=== PATIENT | female | born 1955 | race Caucasian/White ===

== ENCOUNTER 2019-04-18 12:00 | Emergency (ER) | payer OTHER ==
[~2019-04-18] VITALS: Ht 154.9 cm; Wt 87.5 kg
--- NOTE | ~2019-04-18 | EKG ---
[place], [place] ELECTROCARDIOGRAM REPORT NAME: CHRISTINE VILLANUEVA UNIT #: [id number] ROOM: DOCTOR: EPIPHINGRID DRAFT REPORT BIRTHDATE: [birth year] [facility] Test Date: 2019-04-18 Test Time: 12:40:52 Pat Name: CHRISTINE VILLANUEVA Department: Room: Gender: F Industrial Relations Officer: : 1955 Requested By: MARITZA LEMUS Order Number: [id number] Reading MD: Sabas Prieto MD Measurements Intervals [place] Rate: 82 P: 68 NH: 257 QRS: -40 QRSD: 154 T: 108 QT: 424 QTc: 496 Interpretive Statements Sinus rhythm First degree block Left bundle branch block Baseline wander in lead(s) V2 Electronically Signed On 04-20-2019 15:51:48 PDT by Sabas Prieto MD CM:EKGRPT:ELECTROCARDIOGRAM REPORT [id number] MARITZA CAT DRAFT REPORT MARITZA LEMUS DO
[2019-04-18 12:02] VITALS: BP 115/62
[2019-04-18 12:54] LABS: BASO % 0.2 % (0.0-1.0); HEMATOCRIT 42.8 % (37.0-47.0); HEMOGLOBIN 11.8 g/dl (12.0-16.0); LYMPH % 15.9 % (27.0-41.0); MEAN CELL VOLUME 85.8 fl (81.0-99.0); MEAN CORPUSCULAR HGB 23.6 pg (27.0-31.0); MEAN CORPUSCULAR HGB CONC 27.6 g/dl (33.0-37.0); MONO # 0.3 10*3/uL (0.1-1.0); MONO % 5.1 % (3.0-9.0); NEUT # 5.1 10*3/uL (2.3-7.9); NEUT % 78.2 % (47.0-73.0); NUCLEATED RED BLOOD CELL 0.5 % (0.0-0.0); PLATELET COUNT AUTOMATED 243 10*3/uL (130-400); RED BLOOD COUNT 4.99 10*6/uL (4.10-5.10); RED CELL DISTRI WIDTH 22.1 % (0-14.5); WHITE BLOOD COUNT 6.5 10*3/uL (4.8-10.8)
[2019-04-18 13:07] LABS: ACT PARTIAL THROMBO TIME 31.6 SECONDS (20.0-32.1); INTERNATIONAL NORM RATIO 1.3 (2.0-3.5)
[2019-04-18 13:10] LABS: ALBUMIN 2.7 gm/dl (3.1-4.5); ALKALINE PHOSPHATASE 121 U/L (45-117); BUN 63 mg/dl (7-24); CHLORIDE 110 mmol/L (98-107); CREATININE 3.09 mg/dL (0.55-1.02); LIPASE 78 U/L (73-393); POTASSIUM 3.9 mmol/L (3.5-5.1); SGOT/AST 13 IU/L (3-35); SGPT/ALT 18 U/L (12-78); SODIUM 141 mmol/L (136-145); TOTAL PROTEIN 6.1 gm/dL (6.4-8.2)
[2019-04-18 13:14] LABS: TROPONIN I 0.079 ng/ml (<0.045)
[2019-04-18 13:34] LABS: NT-proBNP > 175000.00 pg/mL (0-125)
== END 2019-04-18 14:32 | disposition left against medical advice (07) ==
LOC: ED 12:00
PROVIDERS: Emergency Medicine
DX: R04.0 Epistaxis (principal); R19.7 Diarrhea, unspecified; N17.9 Acute kidney failure, unspecified; R53.1 Weakness; Z88.0 Allergy status to penicillin; Z88.1 Allergy status to other antibiotic agents; Z90.710 Acquired absence of both cervix and uterus; Z90.49 Acquired absence of other specified parts of digestive tract

== ENCOUNTER 2019-04-25 11:36 | Inpatient (IN) | payer OTHER ==
[~2019-04-25] VITALS: Ht 154.9 cm; Wt 83.5 kg
[2019-04-25 11:39] VITALS: BP 112/40
[2019-04-25 12:47] LABS: HEMATOCRIT 41.5 % (37.0-47.0); HEMOGLOBIN 11.2 g/dl (12.0-16.0); MEAN CELL VOLUME 89.2 fl (81.0-99.0); MEAN CORPUSCULAR HGB 24.1 pg (27.0-31.0); MEAN PLATELET VOLUME 10.7 fl (9.6-12.3); NUCLEATED RED BLOOD CELL 0.1 10*3/uL (0.0-0.0); NUCLEATED RED BLOOD CELL 1.8 % (0.0-0.0); PLATELET COUNT AUTOMATED 144 10*3/uL (130-400); RED BLOOD COUNT 4.65 10*6/uL (4.10-5.10); RED CELL DISTRI WIDTH 23.4 % (0-14.5); WHITE BLOOD COUNT 7.4 10*3/uL (4.8-10.8)
[2019-04-25 12:58] LABS: ACT PARTIAL THROMBO TIME 27.9 SECONDS (20.0-32.1); INTERNATIONAL NORM RATIO 1.1 (2.0-3.5)
[2019-04-25 13:05] LABS: ALBUMIN 2.6 gm/dl (3.1-4.5); CREATININE 2.88 mg/dL (0.55-1.02); POTASSIUM 4.5 mmol/L (3.5-5.1)
[2019-04-25 13:06] LABS: POLYCHROMASIA SLIGHT; TOTAL CELLS COUNTED 100 #CELLS
[2019-04-25 13:07] LABS: PLATELET SUFFICIENCY NORMAL (NORMAL); SCHISTOCYTES FEW
--- NOTE | 2019-04-25 13:07 | NUR ---
PT STATES SHE DOES NOT HAVE TO VOID YET. WATER PROVIEDE.
[2019-04-25 13:12] VITALS: BP 105/50
[2019-04-25 13:14] LABS: TROPONIN I 0.133 ng/ml (<0.045)
--- NOTE | 2019-04-25 13:17 | NUR ---
CRITICAL LABS REPORTS TO UTE ALMAGUER DNP.
[2019-04-25 13:32] LABS: BILIRUBIN 2+ (NEGATIVE); BLOOD NEGATIVE (NEGATIVE); CLARITY SL CLOUDY (CLEAR); COLOR YELLOW (YELLOW); GLUCOSE NEGATIVE (NEGATIVE); KETONE NEGATIVE (NEGATIVE); LEUKO ESTERASE NEGATIVE (NEGATIVE); NITRITE NEGATIVE (NEGATIVE); PH 5.5 (5.0-9.0)
[2019-04-25 13:45] LABS: BACTERIA 2+; CALCIUM OXALATE CRYSTALS 1+; MUCOUS 2+
[2019-04-25 13:46] LABS: HYALINE CAST 30-40
[2019-04-25 14:20] VITALS: BP 101/52
--- NOTE | 2019-04-25 15:30 | NUR ---
A 63, admitted to , under the services of MARK Beebe DO with a diagnosis of ELEVATED TROPONIN, GENERALIZED WEAKNESS. Chief complaint is FALL AT HOME, RIGHT ANKLE PAIN, NAUSEA, URINARY TRACT INFECTION SIGNS AND SYMPTOMS. Patient arrived via from ER. Monitor applied. Initial assessment completed. Vital signs taken and recorded. MARK BEEBE DO notified of admission to the unit. Orders received. See assessment for past medical history, medications and allergies. Patient and/or family oriented to unit. [facility] visitation policy reviewed. Clothing/patient valuable form completed. TOOTIE GIBBS
--- NOTE | 2019-04-25 15:45 | NUR ---
DR. REA'S OFFICE NOTIFIED OF CONSULT.
[2019-04-25 16:00] VITALS: BP 116/57
[2019-04-25] MEDS ORDERED: CARVEDILOL3.125 MG PO (16:26)
[2019-04-25] MEDS ORDERED: ASPIRIN CHEWABL81 MG PO (16:27)
[2019-04-25] MEDS ORDERED: LASIX40 MG PO (16:27)
[2019-04-25] MEDS ORDERED: FAMOTIDINE40 MG PO (16:28)
[2019-04-25] MEDS ORDERED: OMEPRAZOLE40 MG PO (16:30)
--- NOTE | 2019-04-25 19:51 | NUR ---
DR. DOUGLAS NOTIFIED OF PATIENTS REQUEST FOR PAIN MED DUE TO FALL AT HOME ON WEDNESDAY AND ANKLE INJURY, ORDERS RECEIVED.
[2019-04-25 20:00] VITALS: BP 100/83
[2019-04-25 20:50] LABS: TROPONIN I 0.159 ng/ml (<0.045)
--- NOTE | 2019-04-25 20:58 | NUR ---
MESSAGE LEFT FOR DR. GARAY REGARDING ELEV TROPONIN. PT. REMAINS ASYMPT. NORCO GIVEN FOR COMPLAINTS OF RIGHT ANKLE PAIN. CECI BRODERICK RN
--- NOTE | 2019-04-25 21:00 | NUR ---
DR. DOUGLAS NOTIFIED OF ELEV TRIP AND LACTIC ACID.
[2019-04-25 21:08] LABS: NT-proBNP > 175000.00 pg/mL (0-125)
--- NOTE | 2019-04-25 22:02 | NUR ---
PT. SLEEPING, NORCO EFFECTIVE.
[2019-04-26] VITALS: BP 106/49
--- NOTE | 2019-04-26 02:02 | NUR ---
24 HR chart check completed.
--- NOTE | 2019-04-26 06:16 | NUR ---
CHRISTINE VILLANUEVA [id number] Please refer to the physician's history and physical for past medical history, comorbid conditions, and allergies. Diagnosis: ELEVATED TROPONIN I LEVEL GENERAL WEAKNESS Ronald Score: 16,AT RISK WOUND DESCRIPTIONS: Wound Number: 1 Location of the wound: right forearm Type of wound: skin tear Thickness: Partial Size: 3.5cm x 4.0cm x 0.1cm Tunneling: none Undermining: none Sinus Tract: none Presence of Exudate: Serosanguineous Amount: Light Color: Red Odor: None Periwound Skin Appearance: Normal Wound edges: approximated Pain (associated with wound): none at time of assessment How does patient state this happened? pt stated this happened 2 days ago while she was getting out of a chair with help Surface the patient is resting on: Isoflex SKIN PREVENTION RECOMMENDATION: 1. Pressure redistribution support surface as appropriate 2. Elevate heels 3. Remove boots/TEDS every shift and reapply 4. Head of bed 30 degrees as tolerated 5. Assess nutrition and hydration 6. Manage moisture 7. Avoid the use of containment devices while in bed 8. Use absorptive products on surfaces limit layers of linens on bed 9. Turn and reposition every 1-2 hours in bed and every 1 hour in chair as tolerated 10. Weight shifts every 15 minutes while up in chair 11. Offloading with pillows or device to keep heels elevated off bed 12. Monitor skin at least every shift 13. Inspect under medical devices twice a day WOUND TREATMENT RECOMMENDATIONS: Contine skin tear guidelines: Cleanse right forearm with nss and apply sureprep around the wound hydrogel to wound bed and cover with optifoam gentle every 2 days and prn.
[2019-04-26 06:29] LABS: EOS % 0.5 % (1.0-4.0); HEMATOCRIT 38.6 % (37.0-47.0); HEMOGLOBIN 10.4 g/dl (12.0-16.0); LYMPH # 1.2 10*3/uL (1.3-4.4); LYMPH % 18.1 % (27.0-41.0); MEAN CELL VOLUME 89.6 fl (81.0-99.0); MEAN CORPUSCULAR HGB 24.1 pg (27.0-31.0); MEAN CORPUSCULAR HGB CONC 26.9 g/dl (33.0-37.0); MEAN PLATELET VOLUME 10.3 fl (9.6-12.3); MONO # 0.6 10*3/uL (0.1-1.0); NEUT # 4.5 10*3/uL (2.3-7.9); NEUT % 70.8 % (47.0-73.0); NUCLEATED RED BLOOD CELL 0.6 % (0.0-0.0); PLATELET COUNT AUTOMATED 126 10*3/uL (130-400); RED BLOOD COUNT 4.31 10*6/uL (4.10-5.10); RED CELL DISTRI WIDTH 22.9 % (0-14.5); WHITE BLOOD COUNT 6.4 10*3/uL (4.8-10.8)
[2019-04-26 06:48] LABS: POTASSIUM 4.1 mmol/L (3.5-5.1)
[2019-04-26 07:06] LABS: ALBUMIN 2.5 gm/dl (3.1-4.5); CREATININE 2.89 mg/dL (0.55-1.02); FREE T4 0.99 ng/dl (0.76-1.46); PHOSPHOROUS 3.7 mg/dL (2.5-4.9); THYROID STIM HORMONE (HS) 4.02 uIU/ml (0.358-4.75); TOTAL PROTEIN 5.7 gm/dL (6.4-8.2)
[2019-04-26 07:36] LABS: VITAMIN D, 25-HYDROXY 9.6 ng/mL (30-100)
--- NOTE | 2019-04-26 07:45 | NUR ---
NOTIFIED DR WILKINS OF NEW CONSULT FOR RIGHT PLEURAL EFFUSION.
[2019-04-26 08:00] VITALS: BP 138/68
--- NOTE | 2019-04-26 09:00 | NUR ---
Technical Education Teacher in to talk to patient. Patient states lives at home with . There are few steps in the home. Physician: junito chris Pharmacy: [facility] health services: yes, patient doesn't remember the name Patient's level of ADLs: MODERATE ASSIST Patient has working utilities: all working DME: walker Follow-up physician's appointment after d/c: will be made by hospitalist nurse director upon discharge Does patient want to access PORTAL?: no Discharge plan discussed with patient, she lives at home with her , she states she isn't getting around very well, she was released 3 days ago from the [facility] facility and is not able to function at home, discussed with her returning to a short term care home and she was inagreement with this, she stated she would like to be referred to [facility]. life care planner will send referral to [facility]. patient will need an authorization from insurance company prior to discharging to facility. BELLA MCCARTHY
--- NOTE | 2019-04-26 09:46 | NUR ---
PHYSICAL THERAPY Physical therapy evaluation attempted however Pt refused. Will attempt again later. thank you Ting Ayala, PT, DPt
--- NOTE | 2019-04-26 09:48 | NUR ---
Occupational therapy orders received and chart reviewed. Patient refusing morning OT evaluation at this time. Per patient discussion, she is not feeling up to it. OT discussed that OT/PT will check back in the afternoon. Thank you. Michelle Polo, OTR/L
--- NOTE | 2019-04-26 11:12 | NUR ---
Patient is requesting a referral to [facility]. Contacted facility and faxed referral. Will fax PT/OT evals when patient is able to participate. Requires a precert.
[2019-04-26 12:00] VITALS: BP 102/54
--- NOTE | 2019-04-26 13:39 | NUR ---
[facility] is stating this patient is still too sick for them to accept at this time. The can review a referral once patient becomes more stable for snf
--- NOTE | 2019-04-26 13:55 | NUR ---
Occupational therapy orders received and chart reviewed. Patient on bedpan upon OT arrival. Occupational therapy asked if she needed more time and patient said "yeah." Will check back with patient for completion of OT evaluation. Thank you. Michelle Polo OTR/L
--- NOTE | 2019-04-26 13:55 | NUR ---
PHYSICAL THERAPY Physical therapy evaluation attempted however Pt reports she was on the bedpan and would like therapy to come back later. Will attempt later. Ting Ayala, PT, DPT
--- NOTE | 2019-04-26 14:21 | NUR ---
Occupational Therapy offered this date for the third time. Patient was somewhat lethargic with basin nearby, oriented x 3 incl . Patient reported she lives with in 1 floor home with 1 step to enter and uses a rollator walker at home with occasional assist for ADLs. Patient was on the bedpan and reported that she was nauseated but had not told the nurse she was nauseated and was finished on the bedpan but did not use call button; that was in her reach, to tell the aides she was finished on the bedpan. When OTR explained the evaluation and that patient need to sit edge of bed, she reported that she was NOT sitting edge of bed. Patient agreed to OTR returning tomorrow to attempt evaluation. OTR informed aide that patient needed off bedpan and informed nurse that patient was nauseated. Daisy Castellanos OTR/Angeles
--- NOTE | 2019-04-26 14:22 | NUR ---
PHYSICAL THERAPY Physical therapy evaluation attempted however Pt reports feeling nauseous and still being on the bedpan. Reports that she is not willing to participate in therapy today. Will attempt again at a later time. Ting Ayala, PT, DPT
--- NOTE | 2019-04-26 14:32 | NUR ---
KEVIN HILL NOTIFIED ME THAT PT REFUSED PT/OT D/T NAUSEA. REFUSED TO PARTICIPATE.WHEN PT WAS ASKED IF SHE NEEDED ZOFRAN. PT REFUSED.
[2019-04-26 15:45] VITALS: BP 97/50
--- NOTE | 2019-04-26 15:49 | NUR ---
NOTIFIED DR. LEVY OF NEW CONSULT FOR QUESTIONABLE VEGATATION TO AORTIC VALVE.
--- NOTE | 2019-04-26 17:49 | NUR ---
PT CURRENTLY SITTING UP IN BED WITH BASIN . PT C/O NAUSEA. OFFERED PT ZOFRAN. SHE REFUSED AT THIS TIME.ENCOURAGED PT TO ALLOW ME TO MEDICATE HER BUT REFUSED AGAIN.CALL LIGHT IN REACH.
--- NOTE | 2019-04-26 19:38 | NUR ---
24 HOUR CHART CHECK COMPLETED
--- NOTE | 2019-04-26 20:25 | NUR ---
PATIENT ASSESSMENT COMPLETED AT THIS TIME WITHOUT INCIDENT. PATIENT REQUESTING MEDICATION FOR NAUSEA AT THIS TIME, SEE EMAR. IV SITE RED, HARD, PAIN WHEN FLUSHED, IV DISCONTINUE AT THIS TIME AND RESTARTED IN LEFT UPPER ARM WITHOUT INCIDENT. IV ANTIBIOTIC INFUSING WITHOUT INCIDENT, CALL LIGHT WITHIN REACH, WILL CONTINUE TO MONITOR.
--- NOTE | 2019-04-26 23:35 | NUR ---
INFECTION DISEASE ANSWERING SERVICE CALLED CONCERNING MESSAGE FROM [facility] IN THE DAY, ADVISED FISH HATCHERY MAN TO GO AHEAD AND SEND MESSAGE AT THIS TIME.
[2019-04-27] VITALS (29 sets, daily range): BP systolic 99–132; BP diastolic 0–70
--- NOTE | 2019-04-27 00:20 | NUR ---
PATIENT RESTING IN BED IN A POSITION OF COMFORT, DENIES ANY NEEDS OR PAIN AT THIS TIME. CALL LIGHT WITHIN REACH, WILL CONTINUE TO MONITOR.
--- NOTE | 2019-04-27 04:47 | NUR ---
Upon discharge recommend patient to follow up for wound care in outpatient setting continue current wound care orders at discharging facility.
[2019-04-27 07:03] LABS: CREATININE 2.61 mg/dL (0.55-1.02); PHOSPHOROUS 3.2 mg/dL (2.5-4.9); POTASSIUM 4.4 mmol/L (3.5-5.1)
[2019-04-27 07:06] LABS: ALBUMIN 2.3 gm/dl (3.1-4.5)
--- NOTE | 2019-04-27 09:00 | NUR ---
case management visits with patient, she is scheduled for a [facility]LE[facility] today, [facility] will relook at patient for SNF when she is medically stable, will have director of social media marketing send patient's information to an LTAC to see if she would qualify for inpatient in the LTAC, case management will follow
--- NOTE | 2019-04-27 09:01 | NUR ---
PT TRANSPORTED TO OR FOR JOSE ALEJANDRO WITH DR REA.PT REQUESTED I CALL HER .PT UNSURE WHETHER SHE NOTIFIED ANY FAMILY THAT SHE WAS HAVING JOSE ALEJANDRO.
--- NOTE | 2019-04-27 09:05 | NUR ---
ATTEMPTED TO REACH PER PT REQUEST. PT CAN'T REMEMBER IF SHE TOLD HIM SHE WAS HAVING JOSE ALEJANDRO THIS AM WITH DR REA. NO ANSWER AT PT RESIDENCE.
--- NOTE | 2019-04-27 09:58 | NUR ---
PHYSICAL THERAPY Physical therapy evaluation attempted however Pt unavailable. Pt is getting a JOSE ALEJANDRO. Will attempt later. Thanks Ting Ayala, PT, DPT
--- NOTE | 2019-04-27 09:59 | NUR ---
Patient not available for Occupational Therapy evaluation as she is out of her room getting a JOSE ALEJANDRO. Daisy Castellanos OTR/L
--- NOTE | 2019-04-27 10:32 | NUR ---
FIRE OBSERVER contacted Regino to take a look at the patient. -RACHANA Howard
--- NOTE | 2019-04-27 12:19 | NUR ---
PaTIENT HERE FROM SURGERY AFTER JOSE ALEJANDRO. DR EID & DR JEONG ARRIVED. BLOOD PRESSURE IN RT ARM 80/DOPPLER LEFT ARM 108/DOPPLER. PER DR EID ALL B0P TO BE DONE IN LEFT ARM. CEDRIC HEP LOCK INTACT & PATENT. DOCTORS SPOKE WITH & 2 SONS ABOUT JOSE ALEJANDRO RESULTS & NEED TO TRANSFER TO [facility] - SHE IS IN AGREEMENT.
--- NOTE | 2019-04-27 12:29 | NUR ---
CHEMIST received notice of the possbile transfer of the patient. CHEMIST spoke with PAUL Landon, would be able to follow the patient upon transfer. Will put the information in the patients chart. -RACHANA Howard
[2019-04-27 12:33] LABS: EOS % 0.5 % (1.0-4.0); HEMATOCRIT 39.3 % (37.0-47.0); HEMOGLOBIN 10.5 g/dl (12.0-16.0); LYMPH # 0.9 10*3/uL (1.3-4.4); LYMPH % 11.7 % (27.0-41.0); MEAN CELL VOLUME 90.3 fl (81.0-99.0); MEAN CORPUSCULAR HGB 24.1 pg (27.0-31.0); MEAN CORPUSCULAR HGB CONC 26.7 g/dl (33.0-37.0); MEAN PLATELET VOLUME 10.8 fl (9.6-12.3); MONO # 0.6 10*3/uL (0.1-1.0); MONO % 8.1 % (3.0-9.0); NEUT # 6.3 10*3/uL (2.3-7.9); NEUT % 79.2 % (47.0-73.0); NUCLEATED RED BLOOD CELL 0.4 % (0.0-0.0); PLATELET COUNT AUTOMATED 107 10*3/uL (130-400); RED BLOOD COUNT 4.35 10*6/uL (4.10-5.10); RED CELL DISTRI WIDTH 22.6 % (0-14.5); WHITE BLOOD COUNT 7.9 10*3/uL (4.8-10.8)
[2019-04-27 12:48] LABS: ACT PARTIAL THROMBO TIME 30.3 SECONDS (20.0-32.1); INTERNATIONAL NORM RATIO 1.1 (2.0-3.5)
--- NOTE | 2019-04-27 18:51 | NUR ---
RECEIVED A CALL FROM [facility] - THEY SHOULD HAVE A BED FOR HER TONIGHT & ARE PLANNING ON HER BEING TRANSFERRED THERE BUT THEY DO NOT HAVE AT THIS TIME. UPDATED CLINICALS GIVEN..
--- NOTE | 2019-04-27 20:00 | NUR ---
PATIENT LYING IN BED, VISITORS AT BEDSIDE, SON ASKING QUESTIONS ABOUT TRANSFER, STATED WILL CALL AND UPDATE HIM WITH ANY INFORMATION RECEIVED. PATIENT REQUESTING RT FOOT TO BE PROPED BY PILLOW. DENIES ANY OTHER NEEDS AT THIS TIME.
[2019-04-28] VITALS (9 sets, daily range): BP systolic 115–140; BP diastolic 52–61
--- NOTE | 2019-04-28 02:42 | NUR ---
CHRISTINE VILLANUEVA [id number] Please refer to the physician's history and physical for past medical history, comorbid conditions, and allergies. Diagnosis: ELEVATED TROPONIN I LEVEL GENERAL WEAKNESS Ronald Score: 16,AT RISK WOUND DESCRIPTIONS: Wound Number: 1 Location of the wound: right forearm Type of wound: skin tear Thickness: Partial Size: 3.5cm x 4.0cm x 0.1cm Tunneling: none Undermining: none Sinus Tract: none Presence of Exudate: Serosanguineous Amount: Light Color: Red Odor: None Periwound Skin Appearance: Normal Wound edges: approximated Pain (associated with wound): none at time of assessment How does patient state this happened? pt stated this happened a couple days ago while getting out of the chair Wound Number: 2 Location of the wound: right forearm distal Type of wound: skin tear Thickness: Partial Size: 1.0cm x 2.0cm x 0.1cm Tunneling: none Undermining: none Sinus Tract: none Presence of Exudate: Serosanguineous Amount: Light Color: Red Odor: None Periwound Skin Appearance: Normal Wound edges: approximated Pain (associated with wound): none at time of assessment How does patient state this happened? pt stated this happened while done at surgery yesterday Surface the patient is resting on: Isoflex SKIN PREVENTION RECOMMENDATION: 1. Pressure redistribution support surface as appropriate 2. Elevate heels 3. Remove boots/TEDS every shift and reapply 4. Head of bed 30 degrees as tolerated 5. Assess nutrition and hydration 6. Manage moisture 7. Avoid the use of containment devices while in bed 8. Use absorptive products on surfaces limit layers of linens on bed 9. Turn and reposition every 1-2 hours in bed and every 1 hour in chair as tolerated 10. Weight shifts every 15 minutes while up in chair 11. Offloading with pillows or device to keep heels elevated off bed 12. Monitor skin at least every shift 13. Inspect under medical devices twice a day WOUND TREATMENT RECOMMENDATIONS: Skin tear guidelines: Cleanse right forearm proximal and right forearm distal with nss and apply sureprep around the wound versatel to wound bed hydrogel to wound and cover with optifoam gentle.
--- NOTE | 2019-04-28 05:40 | NUR ---
URGENT LAB PULLED FOR APTT. BEHAVIORAL MEDICAL DIRECTOR DIDNT SEND UNTIL 1 HR LATER. NO RESULTS AVAIL. FOR HEPARIN GTT.
[2019-04-28 06:10] LABS: EOS # 0.1 10*3/uL (0.0-0.4); EOS % 1.5 % (1.0-4.0); HEMATOCRIT 35.8 % (37.0-47.0); HEMOGLOBIN 9.7 g/dl (12.0-16.0); LYMPH # 0.7 10*3/uL (1.3-4.4); LYMPH % 10.7 % (27.0-41.0); MEAN CELL VOLUME 88.8 fl (81.0-99.0); MEAN CORPUSCULAR HGB 24.1 pg (27.0-31.0); MEAN CORPUSCULAR HGB CONC 27.1 g/dl (33.0-37.0); MEAN PLATELET VOLUME 10.6 fl (9.6-12.3); MONO # 0.5 10*3/uL (0.1-1.0); MONO % 8.8 % (3.0-9.0); NEUT # 4.7 10*3/uL (2.3-7.9); NEUT % 78.3 % (47.0-73.0); PLATELET COUNT AUTOMATED 95 10*3/uL (130-400); RED BLOOD COUNT 4.03 10*6/uL (4.10-5.10); RED CELL DISTRI WIDTH 22.6 % (0-14.5); WHITE BLOOD COUNT 6.1 10*3/uL (4.8-10.8)
--- NOTE | 2019-04-28 06:40 | NUR ---
CALLED LAB FOR PTT RESULTS, NO RESULTS STILL AVAILABLE.
--- NOTE | 2019-04-28 07:40 | NUR ---
HEPARIN DRIP STOPPED D/T PTT SHOWING NO CLOT DETECTED.
--- NOTE | 2019-04-28 07:58 | NUR ---
DR JEONG AWARE OF PTT RESULT - NO FURTHER ORDERS
--- NOTE | 2019-04-28 08:09 | NUR ---
DR JEONG HERE TO SEE PATIENT
--- NOTE | 2019-04-28 08:41 | NUR ---
SON AWARE THAT AMBULANCE JUST LEFT - [facility] WAS CALLED WITH BED [facility]
--- NOTE | 2019-04-28 08:42 | NUR ---
PATIENT LEFT VIA [facility] WITH GLASSES
--- NOTE | 2019-04-28 09:21 | NUR ---
REPORT GIVEN TO [facility] NURSE LISANDRA -
== END 2019-04-28 08:43 | disposition short-term general hospital (02) | DRG 682 ==
LOC: ED 11:36 → 4E 14:36 → EDHOLD 14:36 → ICCU 14:36 → 4E 15:08 → ICCU 04-27 11:35
PROVIDERS: Internal Medicine; Nurse Practitioner Family; Registered Nurse; Student in an Organized Health Care Education/Training Program; ADMIT Internal Medicine
PROC: B24BZZ4 Ultrasonography of Heart with Aorta, Transesophageal (ICD-10-PCS; principal; 2019-04-27)
PROC: 02HV33Z Insertion of Infusion Device into Superior Vena Cava, Percutaneous Approach (ICD-10-PCS; principal; 2019-04-27)
PROC: B548ZZA Ultrasonography of Superior Vena Cava, Guidance (ICD-10-PCS; principal; 2019-04-27)
DX: N17.9 Acute kidney failure, unspecified (principal); I50.43 Acute on chronic combined systolic (congestive) and diastolic (congestive) heart failure; E43 Unspecified severe protein-calorie malnutrition; J18.9 Pneumonia, unspecified organism; I13.0 Hypertensive heart and chronic kidney disease with heart failure and stage 1 through stage 4 chronic kidney disease, or unspecified chronic kidney disease; E87.2 Acidosis; R18.8 Other ascites; I42.9 Cardiomyopathy, unspecified; N18.4 Chronic kidney disease, stage 4 (severe); S90.01XA Contusion of right ankle, initial encounter; K21.9 Gastro-esophageal reflux disease without esophagitis; E80.6 Other disorders of bilirubin metabolism; E87.8 Other disorders of electrolyte and fluid balance, not elsewhere classified; R79.89 Other specified abnormal findings of blood chemistry; I44.7 Left bundle-branch block, unspecified; I08.8 Other rheumatic multiple valve diseases; I51.3 Intracardiac thrombosis, not elsewhere classified; I95.9 Hypotension, unspecified; E66.8 Other obesity; Z96.1 Presence of intraocular lens; I27.20 Pulmonary hypertension, unspecified; W01.0XXA Fall on same level from slipping, tripping and stumbling without subsequent striking against object, initial encounter; Z90.5 Acquired absence of kidney; Z85.528 Personal history of other malignant neoplasm of kidney; Z90.710 Acquired absence of both cervix and uterus; Z95.2 Presence of prosthetic heart valve; Z90.49 Acquired absence of other specified parts of digestive tract; Z88.0 Allergy status to penicillin; Z88.8 Allergy status to other drugs, medicaments and biological substances; Z79.82 Long term (current) use of aspirin; Z79.899 Other long term (current) drug therapy; Z84.89 Family history of other specified conditions; Z95.810 Presence of automatic (implantable) cardiac defibrillator; Z98.42 Cataract extraction status, left eye; Z98.41 Cataract extraction status, right eye; Z86.718 Personal history of other venous thrombosis and embolism; Z83.6 Family history of other diseases of the respiratory system; Y93.89 Activity, other specified; Y92.89 Other specified places as the place of occurrence of the external cause; Y99.8 Other external cause status; Z68.34 Body mass index [BMI] 34.0-34.9, adult

== ENCOUNTER 2019-05-19 11:32 | Inpatient (IN) | payer OTHER ==
[~2019-05-19] VITALS: Ht 157.4 cm; Wt 75.8 kg
--- NOTE | ~2019-05-19 | EKG ---
[place], [place] ELECTROCARDIOGRAM REPORT NAME: CHRISTINE VILLANUEVA UNIT #: [id number] ROOM: [facility] DOCTOR: MARIANA DRAFT REPORT BIRTHDATE: [birth year] [facility] Test Date: 2019-05-19 Test Time: 17:34:07 Pat Name: CHRISTINE VILLANUEVA Department: Room: [facility] Gender: F Sales Operations Assistant: Niya Mcnair : 1955 Requested By: HASMKUH VERDIN Order Number: [id number] Reading MD: Elias Mackey MD Measurements Intervals [place] Rate: 94 P: -27 WV: 322 QRS: -52 QRSD: 155 T: 114 QT: 460 QTc: 576 Interpretive Statements Sinus tachycardia,Multiform ventricular premature complexes Prolonged WV interval,Left atrial enlargement LBBB Left axis Electronically Signed On 05-20-2019 7:05:04 PST by Elias Mackey MD CM:EKGRPT:ELECTROCARDIOGRAM REPORT [id number] HASMUKH CAT DRAFT REPORT HASMUKH VERDIN DO
--- NOTE | ~2019-05-19 | PR ---
[place], [place] PROGRESS NOTE NAME: CHRISTINE VILLANUEVA UNIT #: [id number] ROOM: [facility] DOCTOR: FRANKY BAZAN MD,CAMMIE BIRTHDATE: [birth year] DOS: 05/22/2019 SUBJECTIVE: She has been noted more awake and alert, does not show any signs of respiratory distress. Peripheral edema still noted with mild reduction. Denies symptoms of fever or chills. There were no symptoms of hemoptysis. Denies symptoms of nausea, vomiting or diarrhea at the present time. Denies symptoms of headache or diplopia. General weakness and fatigue for the patient still noted remains unchanged. Remaining systems were reviewed and they were noted all negative. OBJECTIVE: VITAL SIGNS: Normal temperature, respiratory rate 20, heart rate 78, blood pressure 96/42. Intake of 628, output 1075 mL, negative 455 mL. Pulse oxygen saturation at rest on room air 96% saturation recorded. HEENT: Examination shows head was atraumatic. Eyes nonicterus. NECK: Supple. CARDIOVASCULAR: S1, S2 audible. LUNGS: Noted decreased breaths, lower portion of the lung. There were no crackles or wheezing heard. ABDOMEN: Soft, nontender. Bowel sounds present. EXTREMITIES: No new changes, still noted edema. SKIN: Scattered bruising, medication related and noted unchanged, which is chronic. MUSCULOSKELETAL: No deformity. CENTRAL NERVOUS SYSTEM: General weakness and fatigue. LABORATORY DATA: CMP today, BUN 68, creatinine 2.70. Sodium 151, potassium 3.3. CBC: WBC count normal, hemoglobin 8.2, platelet count 92,000. IMPRESSION: 1. The patient with acute severe congestive heart failure was noted with acute on chronic kidney injury. 2. Peripheral edema. 3. Hypernatremia secondary to diuretics. PLAN OF THERAPY: No changes in the plan of management at this time. Monitor kidney function closely. Order chest x-ray to reassess the pleural fluids amount. Other therapy, plan of management. Additional treatment changes will be made for the patient based on the progression of the illness. Continue to maximize the management of congestive heart failure per Cardiology service's recommendations. Monitor kidney functions. [place], [place] PROGRESS NOTE NAME: CHRISTINE VILLANUEVA UNIT #: [id number] ROOM: [facility] DOCTOR: CAMMIE HASKINS MD BIRTHDATE: [birth year] CAMMIE WILKINS MD CM:PNTRANS 1030 [id number] CAMMIE BAZAN MD 05/23/19 0046 interface
--- NOTE | ~2019-05-19 | PR ---
[place], [place] PROGRESS NOTE NAME: CHRISTINE VILLANUEVA [facility] #: [id number] UNIT #: [id number] ROOM: [facility] DOCTOR: OTILIA REA BIRTHDATE: [birth year] DOS: 05/21/2019 CARDIOLOGY PROGRESS NOTE The patient is being seen in followup for CHF, severe nonischemic cardiomyopathy, left atrial thrombus, bioprosthetic mitral valve. SUBJECTIVE: The patient denies any chest pain or shortness of breath. I reviewed her medical records from her recent hospitalization at [facility], where she was admitted from 04/28/2019 to 05/05/2019. She did undergo repeat transthoracic echocardiogram, which showed severe LV systolic dysfunction. A cardiac MRI was recommended by the Cardiology service because of the question of thrombus on the JOSE ALEJANDRO performed here. However, it was a limited MRI, the patient was very claustrophobic and the study was aborted. Very limited images simply reconfirmed her severe LV systolic and RV dysfunction, only 1 view of the atrium apparently was noted and there was no thrombus or mass identified. She was transitioned from IV heparin to oral anticoagulation. She was sent out on only carvedilol 3.125 b.i.d. because of low blood pressures. There was no mention of discussion of upgrading to a CYTOTECHNOLOGIST device. She was discharged to therapy with instructions to follow up with advanced heart failure as an outpatient. The patient has no recollection of any of this. Her is unaware of what happened either. OBJECTIVE: VITAL SIGNS: Afebrile, pulse 84, respirations 20, blood pressure 99/43, saturating 98% on room air. GENERAL APPEARANCE: Chronically ill appearing elderly lady lying in bed, in no distress. NECK: Supple. JVP mildly elevated. No carotid bruits. RESPIRATORY: Diminished at the bases. No nick rales. CARDIOVASCULAR: Regular rhythm with normal rate. Soft systolic murmur at left sternal border. Left chest wall ICD. ABDOMEN: Positive bowel sounds. Soft, nontender. EXTREMITIES: 1+ pitting edema. Upper extremities are edematous with skin tears and ecchymoses. LABORATORY DATA: Hemoglobin 8.4, platelets 92. Potassium 3.3, creatinine 2.75. CURRENT CARDIAC MEDICATIONS: Include furosemide 60 IV b.i.d., metoprolol succinate 25 mg daily, started yesterday, aspirin 81 mg daily, apixaban 5 mg b.i.d. Telemetry reviewed, sinus rhythm with frequent PVCs and episodes of nonsustained VT. IMPRESSION: 1. Acute on chronic heart failure with reduced ejection fraction. 2. Severe nonischemic cardiomyopathy, EF of 10%. 3. Elevated troponin, likely demand ischemia in the setting of renal failure and congestive heart failure. [place], [place] PROGRESS NOTE [facility] [id number] UNIT #: [id number] ROOM: [facility] DOCTOR: OTILIA REA BIRTHDATE: [birth year] 4. Left bundle-branch block. 5. Chronic kidney disease, relatively stable. 6. Left atrial thrombus, on apixaban. 7. Bioprosthetic mitral valve replacement #29 Israel-Lindsey valve in 2017. 8. Dual chamber ICD initially implanted in 2008, generator change in 2014. [facility]. Valvular disease with severe aortic regurgitation, severe tricuspid regurgitation. 9. Nonsustained ventricular tachycardia. RECOMMENDATIONS: I did discuss with the patient, and essentially options are pursuing more aggressive advanced heart failure therapy by initially pursuing a CYTOTECHNOLOGIST, versus comfort palliative based approach. Both the patient and states she would like to do whatever it takes if it will improve her heart function. As previously noted, optimization of guideline therapy has been significantly limited by hypotension. RECOMMENDATIONS: 1. We will continue IV diuresis, but decrease dose to 40 IV b.i.d. 2. Discontinue aspirin. She does not need it and she is anemic and thrombocytopenic. 3. Continue apixaban. 4. Continue low dose metoprolol succinate. 5. She needs outpatient followup with either her horticultural agent/caul puller or dedicated advanced heart failure team, I think the next step really needs to be consideration of CYTOTECHNOLOGIST versus a strictly palliative approach. Dr. OTILIA REA MD CM:PNTRANS [id number] OTILIA REA 05/21/19 1324 interface
--- NOTE | ~2019-05-19 | CON ---
[place], [place] REPORT OF CONSULTATION NAME: CHRISTINE VILLANUEVA UNIT #: [id number] ROOM: [facility] DOCTOR: TOM WEST MD BIRTHDATE: [birth year] DOS: 05/20/2019 NEPHROLOGY CONSULTATION REASON FOR CONSULTATION: Chronic kidney disease. HISTORY OF PRESENT ILLNESS: A 63-year-old female who gives a history of known chronic kidney disease, nonischemic cardiomyopathy, CHF, valvular heart disease. I am not clear of the details, but it seems she presented to the hospital with increasing shortness of breath. She was admitted to the ICU. Per report, she had a recent stay at [facility] and was seen by Cardiology, but unclear of the details. The patient was admitted to the ICU and creatinine levels are around 3. Today's creatinine was 2.8. She is making some urine. She also was noted to be hypernatremic. She is receiving some intermittent doses of diuretics. She was on room air and did not appear to be in any acute distress. She is an extremely poor historian. She denies following with a commercial attorney. I looked into her office records and there was no record of her seeing us. There was no report of syncope, seizure, nausea or vomiting. The patient's baseline creatinine level seems to be in the upper 2's range, dating back for the past few years, particularly over the past few months with fluctuations. ALLERGIES: DOXYCYCLINE, PENICILLIN. MEDICATIONS: Reviewed in the chart. PAST MEDICAL HISTORY: 1. Known chronic kidney disease as stated above. 2. CHF, cardiomyopathy. 3. ICD placement. 4. Valvular heart disease with mitral valve replacement and bicuspid aortic valve. 5. GERD. 6. Cholecystectomy. 7. Hysterectomy. 8. Right nephrectomy. 9. Cataract surgery. 10. Anemia. FAMILY HISTORY: No reports of chronic kidney disease, otherwise noncontributory. SOCIAL HISTORY: No tobacco, alcohol or illicit drugs. She is presently staying in the rehab facility. REVIEW OF SYSTEMS: As per HPI, otherwise a 10-point review of systems was reviewed and was negative or unobtainable. PHYSICAL EXAMINATION: VITAL SIGNS: Temperature 97.1, pulse 87, respiratory rate 14, blood pressure [place], [place] REPORT OF CONSULTATION NAME: CHRISTINE VILLANUEVA UNIT #: [id number] ROOM: [facility] DOCTOR: JENNA IRVIN,TOM Wasserman BIRTHDATE: [birth year] 82/24. GENERAL: She is awake, lying in bed, comfortable, in no acute distress. HEENT: Shows no appreciable JVD. Sclerae are anicteric. Mucous membranes appeared somewhat dry. Pharynx is clear. NECK: Supple. Trachea is midline. No neck lymphadenopathy or thyromegaly. LUNGS: Diminished breath sounds, with no wheeze. There is no tactile fremitus. She was not using accessory muscles of respiration. HEART: S1, S2. No rub, thrill or gallop. ABDOMEN: Soft, nontender. There is no organomegaly or rigidity, rebound or guarding. There is no CVA tenderness. EXTREMITIES: Had 1-2+ edema. There is no lower extremity lymphadenopathy. Distal pulses are present. SKIN: Showed no overt rash. There is no petechia or purpura. Skin temperature is warm. NEUROLOGIC: She is awake, she is alert. She appeared comfortable. She was moving her extremities. LABORATORY DATA: Hemoglobin 8.7, white count 6.7, platelets 126. Sodium 153, potassium 3.0, CO2 of 27, BUN 68, creatinine 2.8, glucose 89, calcium 7.8, phosphorus 3.2, magnesium 2.3, albumin 2.3. ASSESSMENT: 1. Chronic kidney disease, appears to be stage 4 with a baseline creatinine in the middle to upper 2's. 2. Hypernatremia. 3. Nonischemic cardiomyopathy. 4. Hypokalemia. 5. Anemia. 6. Severe malnutrition and hypoalbuminemia. PLAN: 1. Continue supportive care. Her true volume status is not clear. She is noted to be hypernatremic but does have lower extremity edema. Diuretics have been increased. Monitor her electrolytes carefully. Encourage oral fluids. She is not eating much or drinking much at all per her nurse. 2. Replace electrolytes as needed. Replace potassium, especially on diuretics. 3. Dose meds for current creatinine clearance. 4. Transfuse as needed. 5. Await plans. Thank you for this consultation. [place], [place] REPORT OF CONSULTATION NAME: CHRISTINE VILLANUEVA UNIT #: [id number] ROOM: [facility] DOCTOR: JENNA IRVIN,TOM Wasserman BIRTHDATE: [birth year] TOM WEST MD CM:CONSTR:REPORT OF CONSULTATION 1802 05/21/19 0551 interface
--- NOTE | ~2019-05-19 | PR ---
[place], [place] PROGRESS NOTE NAME: [facility]RISTINE [facility]ILLANUEVA [facility] #: [id number] UNIT #: [id number] ROOM: [facility]- DOCTOR: JENNA IRVIN,TOM Wasserman BIRTHDATE: [birth year] DOS: NEPHROLOGY FOLLOWUP NOTE SUBJECTIVE: The patient was seen and examined. She is awake and alert. She tells me she feels a lot better. She ate a little bit more today. She denies shortness of breath, fevers or chills. She was on room air. PHYSICAL EXAMINATION: VITAL SIGNS: Temperature 97.4, pulse 84, respiratory rate 20, blood pressure 99/43. HEENT: Shows no JVD. Sclerae are anicteric. LUNGS: Diminished breath sounds with no wheeze. HEART: S1, S2. No rub. ABDOMEN: Soft, nontender. EXTREMITIES: Had 1+ edema. LABORATORY DATA: Hemoglobin 8.4, white count 6.1, platelets 92. BUN 69, creatinine 2.75. Sodium 153, potassium 3.3, CO2 of 30, calcium 8.3, magnesium 2.4, albumin 2.4. ASSESSMENT AND PLAN: 1. Stage 4 chronic kidney disease. The patient's baseline creatinine appears to be in the middle to upper 2s range. The patient's renal function is stable and at baseline. Continue to monitor labs while in the hospital. Replace potassium. Diuretics as felt needed, although her true volume status is not clear. 2. Hypernatremia. This remains a problem. She is being diuresed as well. Continue to monitor. Encourage oral fluids. 3. Nonischemic cardiomyopathy. Management per Cardiology. 4. Anemia. Transfuse as needed. TOM WEST MD CM:PNTRANS 21 43 TOM WEST MD 05/21/191942 interface
--- NOTE | ~2019-05-19 | PR ---
[place], [place] PROGRESS NOTE NAME: CHRISTINE VILLANUEVA [facility] #: [id number] UNIT #: [id number] ROOM: [facility]- DOCTOR: PARK WADSWORTH DO BIRTHDATE: [birth year] DOS: 05/22/2019 SUBJECTIVE: The patient offers no complaints today and overall states she is feeling better and notes her breathing is comfortable. Good appetite. No vomiting, no diarrhea. No subjective fevers or chills. PHYSICAL EXAMINATION: VITAL SIGNS: Blood pressure is 96/42, pulse 78, respirations 20, temperature is 95.6 degrees Celsius. GENERAL APPEARANCE: A well-appearing female, awake, alert, oriented x 3, currently in no apparent distress. HEAD AND NECK: Conjunctivae are pink and moist. NECK: JVD is noted. LUNGS: Diminished at the lung bases. CARDIOVASCULAR: Regular without S3, rub, murmur cannot currently be appreciated. ABDOMEN: Soft, positive bowel sounds x 4 without CVA tenderness appreciated. No rebound, guarding or rigidity noted. EXTREMITIES: No clubbing, cyanosis, +2 bilateral pretibial and pedal edema are noted. LABORATORY DATA: From today, WBCs are ____, hemoglobin of 8.2, hematocrit is 31.3, platelets are 92,000. Sodium is 151, potassium 3.3, chloride 113, CO2 of 31, BUN 68, creatinine 2.0, glucose 114, magnesium is 2.1, calcium 8.4, albumin is 2.4, corrected calcium is 9.7, total protein 5.3. ASSESSMENT AND PLAN: 1. Chronic kidney disease. Renal function is stable at her presumed baseline. Electrolytes notable for a low potassium, which is being supplemented on as needed basis. She is also hypernatremic, occurring in the setting of her ongoing diuresis. She does remain volume overloaded. She could have a negative fluid balance yesterday. 2. Hyponatremia presumably due to diuresis. Her ideal body weight is 60.1 kilograms. Estimated free water deficit as such is 1.97 liters. 3. Hypokalemia, mild in nature related to diuretics. Magnesium levels are satisfactory. 4. Anemia. Hemoglobin and hematocrit satisfactory, but decreased. 5. Thrombocytopenia, unclear etiology. 6. Nonischemic cardiomyopathy, for which she has undergone diuresis. RECOMMENDATIONS: Agree with ongoing diuretics. Continue to replace potassium on as needed basis. We will start D5W at 100 mL an hour to correct her free water deficit. This does not preclude ongoing diuresis for this patient. Continue to follow renal function and electrolytes as well as intake and output closely as well as platelet count and hemoglobin. Thank you for allowing us to participate in the care of the patient. [place], [place] PROGRESS NOTE NAME: CHRISTINE VILLANUEVA UNIT #: [id number] ROOM: [facility] DOCTOR: PARK WADSWORTH DO BIRTHDATE: [birth year] PARK WADSWORTH DO CM:LETICIA [phone] PARK WADSWORTH DO 05/23/19 0159 interface
--- NOTE | ~2019-05-19 | PR ---
[place], [place] PROGRESS NOTE NAME: CHRISTINE VILLANUEVA UNIT #: [id number] ROOM: [facility] DOCTOR: CAMMIE HASKISN MD BIRTHDATE: [birth year] DOS: 05/21/2019 PULMONARY PROGRESS NOTE SUBJECTIVE: The patient has been noted somewhat better than yesterday noted to be more awake and alert this morning. Continue high dose diuretic as well. The oxygen supplementation is not needed. She denies symptoms of chest pain. There were no symptoms of cough stated. There were no symptoms of wheezing stated. There were no symptoms of nausea, vomiting or diarrhea. Remaining systems were reviewed with the patient, they were noted all negative. OBJECTIVE: VITAL SIGNS: For the patient which were recorded in the last 24 hours as a normal temperature, respiratory rate was recorded from 16-20, heart rate 84-85, blood pressure 99/49-84/42. Negative fluid balance were noted only 646 mL in the last 24 hours. The pulse oxygen saturation at rest on room air 98% saturation. HEENT: Head was atraumatic. Facial edema was still noted. CARDIOVASCULAR: S1, S2 audible. LUNGS: The patient decreased breath, lower portion of the lungs as previously. ABDOMEN: Soft. EXTREMITIES: The patient has significant edema of the upper and lower extremity with anasarca picture. LABORATORY DATA: CBC this morning, WBC count normal, hemoglobin 8.4, platelet count was 92,000. CMP that was done this morning as BUN of 69, creatinine 2.75, sodium 153, potassium 3.3. IMPRESSION: The patient with anasarca with continued congestive heart failure with reduced ejection fraction as well as other medical illnesses. Bilateral moderate to large pleural effusions. Peripheral edema. Oral debility. PLAN OF MANAGEMENT: No changes in the plan of management at this time will be necessary. Continuation of the current plan of management as in progress with additional treatment changes will be recommended based on progression of illness. At this time, conservative management, pleural fluid will be continued. [place], [place] PROGRESS NOTE NAME: CHRISTINE VILLANUEVA UNIT #: [id number] ROOM: [facility] DOCTOR: CAMMIE HASKINS MD BIRTHDATE: [birth year] CAMMIE WILKINS MD CM:PNTRANS 1425 10 CAMMIE BAZAN MD 05/21/19 1610 interface
--- NOTE | ~2019-05-19 | PR ---
[place], [place] PROGRESS NOTE NAME: CHRISTINE VILLANUEVA UNIT #: [id number] ROOM: [facility] DOCTOR: FRANKY BAZAN MD,CAMMIE BIRTHDATE: [birth year] DOS: 05/23/2019 PULMONARY PROGRESS NOTE SUBJECTIVE: The patient noted comfortable at this time, resting in the bed this morning of assessment, has not been noted any ongoing acute new respiratory complaints. There were no symptoms of chest pain. The patient noted fully awake and alert. There were no symptoms of hemoptysis stated by the patient. Shortness of breath is resolving. General weakness and fatigue, was also noted decreased. Reduction of edema of the lower extremity was also noted. Remaining systems were reviewed. They were noted all negative. OBJECTIVE: VITAL SIGNS: Normal temperature, respiratory rate 18, heart rate 77, blood pressure 106/60. Pulse oxygen saturation recorded as 95% saturation. HEENT: Examination shows head was atraumatic. Eyes nonicterus. NECK: Supple. CARDIOVASCULAR: S1, S2 audible. LUNGS: Noted without any crackles. Decreased breath still noted in the lower portion of the lungs with partial improvement. Crackles noted in mid portion of the lungs. ABDOMEN: Soft, nontender. Bowel sounds present. EXTREMITIES: Shows resolving edema; however, the resolution noted incomplete. Bruising of skin, which is chronic, related to medications. MUSCULOSKELETAL: Without deformity. CENTRAL NERVOUS SYSTEM: General weakness. LABORATORY DATA: CBC this morning: WBC count normal, hemoglobin 8.0, platelet count 99,000. CMP, BUN 65, creatinine 2.67, glucose 159, sodium 147, potassium 3.4. Bilirubin 1.4. IMPRESSION: 1. The patient with acute congestive heart failure with bilateral pleural fluids. 2. Hypernatremia. 3. The patient with thrombocytopenia as well and noted with partial improvement from yesterday, etiology undetermined. PLAN OF CARE: No changes in the plan of management at this time. Continue the patient's current plan of therapy Monitor respiratory status. Chest x-ray yesterday was still noted with pleural fluid, which will be monitored. Monitoring the overall status. Usual care. Oxygen supplementation in case of hypoxia. [place], [place] PROGRESS NOTE NAME: CHRISTINE VILLANUEVA UNIT #: [id number] ROOM: [facility] DOCTOR: CAMMIE HASKINS MD BIRTHDATE: [birth year] CAMMIE WILKINS MD CM:PNTRANS 11 12 CAMMIE BAZAN MD 05/23/191911 interface
--- NOTE | ~2019-05-19 | EKG ---
[place], [place] ELECTROCARDIOGRAM REPORT NAME: CHRISTINE VILLANUEVA UNIT #: [id number] ROOM: [facility] DOCTOR: MARIANA DRAFT REPORT BIRTHDATE: [birth year] [facility] Test Date: 2019-05-19 Test Time: 11:35:00 Pat Name: CHRISTINE VILLANUEVA Department: Room: [facility] Gender: F Eap Consultant: : [id number] Requested By: HASMUKH VERDIN Order Number: [id number] Reading MD: Elias Mackey MD Measurements Intervals [place] Rate: 104 P: 48 VT: 214 QRS: -69 QRSD: 147 T: 88 QT: 447 QTc: 588 Interpretive Statements Sinus tachycardia Multiple ventricular premature complexes Borderline prolonged VT interval Left bundle branch block Compared to ECG 04/25/2019 12:56:57 Ventricular premature complex(es) now present Sinus rhythm no longer present Electronically Signed On 05-20-2019 6:54:05 PST by Elias Mackey MD CM:EKGRPT:ELECTROCARDIOGRAM REPORT [id number] HASMUKH CAT DRAFT REPORT HASMUKH VERDIN DO
--- NOTE | ~2019-05-19 | CON ---
[place], [place] REPORT OF CONSULTATION NAME[id number] UNIT #: [id number] ROOM: [facility] DOCTOR: CAMMIE HASKINS MD BIRTHDATE: [birth year] DOS: 05/20/2019 PULMONARY CONSULTATION, EVALUATION, AND MANAGEMENT REASON FOR CONSULTATION: For the assessment and management of current pleural effusion. HISTORY OF PRESENT ILLNESS: A 63-year-old female patient who has been seen briefly 1 day, last admission, then transferred to [facility] for further assessment with suspicion of vegetation of aortic valve and/or thrombus. The patient has been treated there and later on transferred [facility]. The patient has been admitted to the hospital yesterday as the patient has been reported with symptoms of progressive increased general weakness and edema of the lower extremity, which has been ongoing last few days. She was also reported symptoms of shortness of breath with symptoms of nauseated feeling. There were symptoms of cough stated with symptoms of wheezing stated by the patient. REVIEW OF SYSTEMS: CONSTITUTIONAL: Very limited. The patient has been noted ill looking. Denies symptoms of fever or chills. General weakness and fatigue was stated. EYES: Denies burning, redness or discharge. EAR, NOSE, THROAT SYMPTOMS: No sore throat, hoarseness, otalgia, postnasal drip, epistaxis. CARDIOVASCULAR: Noted edema of the extremities. There were no palpitation or anginal pain. GASTROINTESTINAL SYMPTOMS: Symptoms of nausea were noted. There was no vomiting. There were no symptoms of abdominal pain, hematemesis, melena, or hematochezia. GENITOURINARY SYMPTOMS: No dysuria, suprapubic pain, or hematuria. MUSCULOSKELETAL: The patient denies any joint pain at the present time. CENTRAL NERVOUS SYSTEM: Severe general weakness and fatigue were noted, but further history could not be stated by the patient. PAST MEDICAL HISTORY: 1. Known with history of heart failure with severely reduced, ejection fraction is 5%-10% noted. 2. Possibility of vegetation on the aortic valve was also noted on her recent admission. For further detail assessment in [place] were missing at this time. No records available. The patient is unable to state that history. 3. History of chronic kidney disease, which is stage 3-4. 4. History of mitral valve replacement. 5. Right kidney cancer, nephrectomy on 11/2018. 6. Gastroesophageal reflux. PAST SURGICAL HISTORY: 1. Reported mitral valve replacement. 2. Right nephrectomy on 11/2018 at [facility]. 3. Complete hysterectomy. 4. Cholecystectomy. [place], [place] REPORT OF CONSULTATION NAME: CHRISTINE VILLANUEVA UNIT #: [id number] ROOM: [facility] DOCTOR: CAMMIE HASKINS MD BIRTHDATE: [birth year] 5. Bilateral cataract extraction and lens implantation. SOCIAL HISTORY: The patient lives at home prior to admission to the hospital at [facility] facility. She was noted lifetime nonsmoker with a history of alcohol use or illicit drugs. FAMILY HISTORY: The patient's father at the age of 85-year-old, unknown medical illnesses. Mother an 82-year-old with complications of polycythemia. CURRENT MEDICATIONS: Administered were noted as Lasix 40 mg IV b.i.d., metoprolol succinate 25 mg daily, aspirin 81 mg p.o. daily, Eliquis 5 mg p.o. b.i.d., Other p.r.n. meds including Zofran for the nausea. DRUG ALLERGIES: Noted; 1. PENICILLIN. 2. DOXYCYCLINE. PHYSICAL EXAMINATION: GENERAL: A 63-year-old female, currently noted to be awake, looking sick, but able to answer the questions to some extent. Height of 5 feet 3 inches, weight 168 pounds. VITAL SIGNS: The patient has a normal temperature since admission in the last 24 hours, respiratory rate ranged between 16-20, heart rate 84-104, and blood pressure of 84/46-112/58. The intake recorded as intake ____, output 350 mL, last 12 hours of admission. The pulse oxygen saturation at rest on room air noted 95% saturation. HEENT: Facial edema was noted. Head was atraumatic. Eyes nonicterus. NECK: Supple. CARDIOVASCULAR: S1, S2 audible. LUNGS: Noted decreased breath sounds in the lungs bilaterally. ABDOMEN: Soft, nontender. EXTREMITIES: Edema noted in the upper and the lower extremity. MUSCULOSKELETAL: Without deformity. VISIBLE SKIN: No lesions or rashes. CENTRAL NERVOUS SYSTEM: The patient was noted in general intact. LABORATORY DATA: PT/PTT, which was done yesterday on 05/19/2019 were noted as INR 1.3, PTT normal. The CMP that was done yesterday as BUN 68, creatinine 3.05, sodium 148. Troponin 0.21. The bilirubin 2.3. Lactic acid yesterday noted 3.1, followup of 1.8 in the last several hours. CBC yesterday, WBC count normal, hemoglobin 10.3, and platelet count was normal. CBC that was done this morning with WBC count as 6.7, hemoglobin 8.7, and platelet count was 126,000. The PT/INR 1.3, PTT 36. The CMP this morning, BUN 68, creatinine 2.82. Sodium 153, potassium 3.0, chloride 115, and bilirubin 1.7. Chest x-ray noted with bilateral pleural fluid, greater on the right than the left side with cardiomegaly. IMPRESSION: 1. The patient has been noted with history of heart failure with severely [place], [place] REPORT OF CONSULTATION NAME: CHRISTINE VILLANUEVA UNIT #: [id number] ROOM: [facility] DOCTOR: PO HASKINS MDULAM BIRTHDATE: [birth year] reduced ejection fraction. 2. Previous history of vegetation on the aortic valve. Again, the details about that unknown versus thrombus. 3. Abnormal coagulation related to the use of the Eliquis with mild elevation of PT/INR. 4. The patient with bilateral large pleural fluid secondary to congestive heart failure as well. 5. [id number] ____ related to congestive heart failure, which is improving. 6. Lactic acidosis related to hypoperfusion with reduced ejection fraction. 7. Debility and weakness secondary to the above illnesses. There was no evidence of acute infection. 8. Hypernatremia and hypokalemia related to diuretics use. PLAN AND MANAGEMENT: Ultrasound of the chest was performed at the bedside, [id number] right pleural fluid and moderate-sized pleural fluid noted on the left side. Compression atelectasis was noted because of that. The patient already been started on high dose of diuretic as compared yesterday dose, monitoring status closely. Oxygen supplementation if necessary. Maintain pulse ox 92% or greater. The patient currently noted room air of oxygen. If the diuresis failed to achieve the expected improvement of the pleural fluid or because of kidney issues and other contraindication to diuretic, symptomatic management thoracentesis will be done bilaterally. Continue to maximize the cardiac management. Nurses' staff stated to me, the patient may be considered for transfer to [facility] for biventricular synchronized pacemaker insertion because of current congestive heart failure and cardiomyopathy. Supportive therapy, plan of management, symptomatic management of nausea will be done. The patient had been noted 1 episode of vomiting previously at home, but that has been resolved. Supportive therapy, plan of management, care plan for treatment and therapies. Usual medical management. Thanks for allowing me to participate in the care of this patient. CAMMIE WILKINS MD CM:CONSTR:REPORT OF CONSULTATION 1334 05/20/19 2337 interface
--- NOTE | ~2019-05-19 | CON ---
[place], [place] REPORT OF CONSULTATION NAME: CHRISTINE VILLANUEVA UNIT #: [id number] ROOM: [facility] DOCTOR: OTILIA REA BIRTHDATE: [birth year] DOS: 05/20/2019 CARDIOLOGY CONSULTATION REASON FOR CONSULTATION: CHF. REQUESTING PHYSICIAN: Dr. Maxi Rowland. HISTORY OF PRESENT ILLNESS: The patient is a 63-year-old female with a severe nonischemic cardiomyopathy, chronic systolic heart failure, history of mitral valve replacement, history of bicuspid aortic valve, CKD, status post ICD, who I know from a recent hospital admission here at [place]. She presented at that time with CHF exacerbation. A transthoracic echo was suggestive of possible aortic vegetations, so I performed a JOSE ALEJANDRO. No aortic vegetation was seen and her prosthetic mitral valve appeared to be normally functioning without vegetation; however, there appeared to be a left atrial thrombus. She was anticoagulated and I recommended transfer to tertiary center for further evaluation for advanced heart failure therapy and consideration of upgrade to a BEHAVIORAL SCIENTIST device given left bundle-branch block, severe left ventricular dysfunction. Guideline directed medical therapy has been significantly limited by low blood pressure. She was recently discharged from [facility] and was at a rehab facility for the past couple of days. She was brought in for evaluation from there because of worsening shortness of breath. The patient states she has edema, which appears to be unchanged. She is a poor historian. She states she does not recall seeing any doctors or any rater associate during her recent stay at [facility] and that they told her "nothing" in regards to her heart. She is denying any specific complaints at this time. REVIEW OF SYSTEMS: Negative except as described above. PAST MEDICAL HISTORY: Systolic heart failure, severe nonischemic cardiomyopathy, status post ICD, CKD, mitral valve replacement, bicuspid aortic valve, GERD. PAST SURGICAL HISTORY: Includes bioprosthetic mitral valve replacement in 2017, ICD placed initially in 2008 with a generator change in 2014, also has a history of cholecystectomy, hysterectomy, right nephrectomy, cataract surgery. SOCIAL HISTORY: Denies alcohol drinking or drug use. Currently lives at a rehab facility. FAMILY HISTORY: Parents are . Noncontributory given age. No premature coronary artery disease. MEDICATIONS: Prior to admission include apixaban 5 b.i.d.; aspirin 81 mg daily; furosemide 20 mg Wednesday, Wednesday and Wednesday; ascorbic acid; vitamin D3; famotidine; folic acid; iron complex; Methergine; omeprazole. [place], [place] REPORT OF CONSULTATION NAME: CHRISTINE VILLANUEVA UNIT #: [id number] ROOM: [facility] DOCTOR: OTILIA REA BIRTHDATE: [birth year] ALLERGIES: Listed to DOXYCYCLINE and PENICILLIN. PHYSICAL EXAMINATION: VITAL SIGNS: Afebrile, pulse 98, respirations 18, blood pressure 112/58, saturating 95% on room air. GENERAL APPEARANCE: She is a middle-aged overweight lady who looks older than her stated age, lying in bed. She is lethargic, but awakens. ENT: Shows moist mucous membranes. NECK: Supple. She has a left internal jugular triple lumen catheter. Right neck is bruised from prior IJ. JVP is difficult to assess. RESPIRATORY: Bibasilar rales. CARDIOVASCULAR: Regular rate and rhythm with normal rate. Systolic murmur at the left sternal border. She has left chest wall ICD. ABDOMEN: Positive bowel sounds. Soft, nontender. EXTREMITIES: 1-2+ pitting edema bilateral lower extremities. Her arms are edematous as well. SKIN: Multiple ecchymoses. NEUROLOGIC: Nonfocal. LABORATORY DATA: Hemoglobin is 8.7, platelets 126. Sodium 153, potassium 3.0, chloride 115, BUN 68, creatinine 2.82, magnesium 2.3. Troponin 0.211, 0.181, 0.197. EKG showed sinus tachycardia with PVCs, left bundle-branch block with left axis, first degree AV block and left atrial enlargement. Telemetry showed sinus with frequent PVCs and some runs of nonsustained VT yesterday. Transthoracic echocardiogram from 04/26/2019 showed severely dilated LV with severe LV systolic dysfunction with an EF of 5-10% with global hypokinesis of the left ventricle. RV was moderately dilated with moderately reduced RV systolic function. Left atrium moderately dilated. Moderate to severe aortic regurgitation, possible aortic valve vegetation. Bioprosthetic mitral valve with no regurgitation noted. Moderate to severe TR, mild pulmonic regurgitation. Left pleural effusion, ascites and mildly dilated ascending aorta 3.8 cm. Transesophageal echocardiogram, 04/27/2019, showed again severely dilated and dysfunctional LV with an EF of 10%. There was a left atrial thrombus noted. Aortic valve was bicuspid with fusion of the right and left coronary cusp. Severe aortic regurgitation noted. Normally functioning mitral bioprosthesis noted. Moderate to severe TR. IMPRESSION: 1. Acute on chronic heart failure with reduced ejection fraction. 2. Severe nonischemic cardiomyopathy, ejection fraction 5-10%. 3. Elevated troponin, likely demand ischemia in the setting of renal failure and congestive heart failure. 4. Left bundle-branch block. [place], [place] REPORT OF CONSULTATION NAME: CHRISTINE VILLANUEVA UNIT #: [id number] ROOM: [facility] DOCTOR: OTILIA REA BIRTHDATE: [birth year] 5. Chronic kidney disease. 6. Left atrial thrombus, currently on apixaban. 7. Bioprosthetic mitral valve replacement, #29 Israel-Lindsey valve in 2017. 8. Dual chamber implantable cardioverter-defibrillator, initially placed in 2008, generator change in 2014. [place] device. 9. Valvular disease: Severe aortic regurgitation, severe tricuspid regurgitation. RECOMMENDATIONS: The patient is presenting with decompensated heart failure with severe nonischemic cardiomyopathy with severe LV dysfunction. I did discuss briefly with the patient's about recent events in [place], I asked if they discussed a BEHAVIORAL SCIENTIST lead, he believes this was discussed, but the patient refused. The patient has no recollection of what transpired in [place]. Furthermore, optimization of guideline-directed medical therapy has been limited by low blood pressures. 1. Continue IV diuresis. 2. Replace potassium aggressively. 3. Recommend starting low dose metoprolol succinate as she is currently on no beta juan antonio, but was previously on carvedilol. She has had low blood pressures that limited GDMT. 4. Continue apixaban for left atrial thrombus. 5. Overall prognosis guarded especially if she has been resistant to potential interventions that could improve her LV function. Please request records from recent [facility] admission. Thank you for the consultation. We will follow. Dr. OTILIA REA MD CM:CONSTR:REPORT OF CONSULTATION 1046 05/22/19 0741 interface
--- NOTE | ~2019-05-19 | EKG ---
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
[~2019-05-19 11:32] MED LIST: ASPIRIN CHEWABL81 MG PO; CARVEDILOL3.125 MG PO; FAMOTIDINE40 MG PO; LASIX40 MG PO; OMEPRAZOLE40 MG PO
[2019-05-19 11:35] VITALS: BP 84/46
[2019-05-19 12:05] VITALS: BP 102/58
[2019-05-19 12:06] LABS: HEMATOCRIT 39.3 % (37.0-47.0); HEMOGLOBIN 10.3 g/dl (12.0-16.0); MEAN CELL VOLUME 97.5 fl (81.0-99.0); MEAN CORPUSCULAR HGB 25.6 pg (27.0-31.0); MEAN CORPUSCULAR HGB CONC 26.2 g/dl (33.0-37.0); MEAN PLATELET VOLUME 11.5 fl (9.6-12.3); NUCLEATED RED BLOOD CELL 0.3 10*3/uL (0.0-0.0); NUCLEATED RED BLOOD CELL 3.7 % (0.0-0.0); PLATELET COUNT AUTOMATED 150 10*3/uL (130-400); RED BLOOD COUNT 4.03 10*6/uL (4.10-5.10); RED CELL DISTRI WIDTH 26.6 % (0-14.5); WHITE BLOOD COUNT 7.2 10*3/uL (4.8-10.8)
--- NOTE | 2019-05-19 12:14 | NUR ---
UNABLE TO OBTAIN PERIPHERAL IV ACCESS AFTER MULTIPLE ATTEMPTS BY RN'S. DR. VERDIN AWARE. PATIENT REPORTS THAT THE LAST 2 IV'S SHE HAD WERE "IN MY NECK"
[2019-05-19 12:18] LABS: ACT PARTIAL THROMBO TIME 31.5 SECONDS (20.0-32.1); INTERNATIONAL NORM RATIO 1.3 (2.0-3.5)
[2019-05-19 12:22] LABS: ALBUMIN 2.9 gm/dl (3.1-4.5); CREATININE 3.05 mg/dL (0.55-1.02); POTASSIUM 4.1 mmol/L (3.5-5.1); TOTAL PROTEIN 6.4 gm/dL (6.4-8.2)
[2019-05-19 12:26] LABS: TROPONIN I 0.211 ng/ml (<0.045)
[2019-05-19 12:27] LABS: TOTAL CELLS COUNTED 100 #CELLS
--- NOTE | 2019-05-19 12:27 | NUR ---
DR. VERDIN AWARE OF CRITICAL LABS.
[2019-05-19 12:28] LABS: POLYCHROMASIA SLIGHT
[2019-05-19 12:29] LABS: PLATELET SUFFICIENCY NORMAL (NORMAL)
[2019-05-19 13:49] VITALS: BP 103/56
--- NOTE | 2019-05-19 14:39 | NUR ---
XRAY BEING PLACED FOR CENTRAL LINE PLACEMENT.
--- NOTE | 2019-05-19 14:52 | NUR ---
[facility] NOTIFIED OF CONSULT
[2019-05-19 15:00] VITALS: BP 100/48
--- NOTE | 2019-05-19 15:00 | NUR ---
A 63, admitted to [facility], under the services of MARITZA Ambrosio DO with a diagnosis of CHF. Chief complaint is EMESIS AT HOME. Patient arrived via ambulance from ER. Monitor applied. Initial assessment completed. Vital signs taken and recorded. MARITZA AMBROSIO DO notified of admission to the unit. Orders received. See assessment for past medical history, medications and allergies. Patient and/or family oriented to unit. [facility] visitation policy reviewed. Clothing/patient valuable form completed. [place] FILED
--- NOTE | 2019-05-19 15:22 | NUR ---
PO ZOFRAN NOT GIVEN DUE TO CENTRAL LINE PLACEMENT PENDING CONFIRMATION. PATIENT STATES OKAY TO WAIT. DR. VERDIN AWARE AND SAID ONCE CONFRIMED IV ZOFRAN CAN BE GIVEN.
[2019-05-19 16:00] VITALS: BP 97/46
[2019-05-19 16:10] LABS: BILIRUBIN 2+ (NEGATIVE); BLOOD NEGATIVE (NEGATIVE); CLARITY CLEAR (CLEAR); COLOR YELLOW (YELLOW); GLUCOSE NEGATIVE (NEGATIVE); KETONE TRACE (NEGATIVE); LEUKO ESTERASE NEGATIVE (NEGATIVE); NITRITE NEGATIVE (NEGATIVE); PH 5.5 (5.0-9.0)
[2019-05-19 16:17] LABS: BACTERIA 1+; EPITHELIAL CELLS 015-20; HYALINE CAST TNTC[; MUCOUS 1+; RBC 0-2 rbc/hpf (0-2)
[2019-05-19] MEDS ORDERED: ELIQUIS5 M1 PO (16:20)
[2019-05-19] MEDS ORDERED: NATURE'S BLEND F1 MG PO (16:21)
[2019-05-19] MEDS ORDERED: IFEREX 150150 MG PO (16:24)
[2019-05-19] MEDS ORDERED: PRILOSEC20 M1 PO (16:25)
[2019-05-19] MEDS ORDERED: REMERON15 M2 PO (16:26)
[2019-05-19] MEDS ORDERED: VITAMIN C500 M8 PO (16:27)
[2019-05-19] MEDS ORDERED: SENNOSIDES-DOC1 EACH PO (16:27)
[2019-05-19] MEDS ORDERED: VITAMIN D33000 UNIT PO (16:28)
--- NOTE | 2019-05-19 16:28 | NUR ---
MED REC UPDATED PER DISCHARGE FROM [facility]
--- NOTE | 2019-05-19 16:45 | NUR ---
DR. WILKINS'S OFFICE NOTIFIED OF CONSULT.
--- NOTE | 2019-05-19 17:51 | NUR ---
DR. JEONG NOTIFIED THAT I AM UNABLE TO CONTACT DR. MCKEON'S ANSWERING SERVICE THERE IS NO ANSWER
--- NOTE | 2019-05-19 19:36 | NUR ---
PATIENT STATES SHE FEELS LIKE SHE IS GOING TO VOMIT, ZOFRAN GIVEN. WILL MONITOR AND REASSESS.
[2019-05-19 20:00] VITALS: BP 103/51
--- NOTE | 2019-05-19 21:00 | NUR ---
Patient denies any nausea at this time, was able to drink water and swallow pill. zofran effective.
--- NOTE | 2019-05-19 23:49 | NUR ---
DR. EMMANUEL RETURNED CALL FOR NEPHRO, NO URGENCY. WILL SEE PATIENT TOMORROW.
[2019-05-20] VITALS (9 sets, daily range): BP systolic 82–112; BP diastolic 24–64
[2019-05-20 06:03] LABS: ALBUMIN 2.3 gm/dl (3.1-4.5); CREATININE 2.82 mg/dL (0.55-1.02); PHOSPHOROUS 3.2 mg/dL (2.5-4.9); TOTAL PROTEIN 5.1 gm/dL (6.4-8.2)
[2019-05-20 06:16] LABS: HEMATOCRIT 32.9 % (37.0-47.0); HEMOGLOBIN 8.7 g/dl (12.0-16.0); MEAN CELL VOLUME 98.2 fl (81.0-99.0); MEAN CORPUSCULAR HGB CONC 26.4 g/dl (33.0-37.0); MEAN PLATELET VOLUME 11.7 fl (9.6-12.3); NUCLEATED RED BLOOD CELL 0.1 10*3/uL (0.0-0.0); NUCLEATED RED BLOOD CELL 1.8 % (0.0-0.0); PLATELET COUNT AUTOMATED 126 10*3/uL (130-400); RED BLOOD COUNT 3.35 10*6/uL (4.10-5.10); RED CELL DISTRI WIDTH 26.5 % (0-14.5); WHITE BLOOD COUNT 6.7 10*3/uL (4.8-10.8)
[2019-05-20 06:25] LABS: ACT PARTIAL THROMBO TIME 36.8 SECONDS (20.0-32.1); INTERNATIONAL NORM RATIO 1.3 (2.0-3.5)
[2019-05-20 07:31] LABS: PLATELET SUFFICIENCY NORMAL (NORMAL); POLYCHROMASIA SLIGHT; TOTAL CELLS COUNTED 100 #CELLS
--- NOTE | 2019-05-20 10:25 | NUR ---
DR REA IN TO SEE PT.
--- NOTE | 2019-05-20 11:30 | NUR ---
PT MEDICATED WITH ZOFRAN FOR C/O NAUSEA. PT REFUSING ANY FOOD TODAY.
--- NOTE | 2019-05-20 11:31 | NUR ---
DR WILKINS IN TO SEE PT.
--- NOTE | 2019-05-20 12:07 | NUR ---
PT STATED ZOFRAN WAS EFFECTIVE IN EASING HER NAUSEA BUT STILL REFUSES ANY FOOD AT THIS TIME. PT EDUCATED ON IMPORTANCE OF NUTRITION AND OPTIONS OF FOOD OFFERED.
--- NOTE | 2019-05-20 14:39 | NUR ---
PT HAS NOT EATEN ANY FOOD TODAY AND ONLY TAKING SIPS OF WATER WITH HER PILLS. I HAD A LENGTHY DISCUSSION WITH PT ABOUT IMPORTANCE OF EATING AND DRINKING. PT BECAME IRRITATED AND WHEN I ASKED WHAT I COULD GET FOR HER TO TRY TO EAT OR DRINK SHE STATED " I JUST WANT TO BE LEFT ALONE". SHE THEN REFUSED TO ANSWER ANY FURTHER QUESTIONS ABOUT EATING JUST LOOKED AWAY IGNORING ME ALL TOGETHER.
--- NOTE | 2019-05-20 14:53 | NUR ---
DR GAN NOTIFIED THAT PT IS NOT EATING OR DRINKING TODAY.
--- NOTE | 2019-05-20 19:09 | NUR ---
CHART CHECK COMPLETE. PT RESTING IN BED. AT BEDSIDE.
--- NOTE | 2019-05-20 22:00 | NUR ---
PT DOES PERMIT REPOSITIONING AND PROPPING WITH PILLOW/WEDGE BUT DECLINES BATH AT THIS TIME. ZOFRAN AT 2100 FOR DRY HEAVES AND NAUSEA "A LITTLE BIT" EFFECTIVE.
[2019-05-21] VITALS: BP 89/48
[2019-05-21 04:00] VITALS: BP 98/49
--- NOTE | 2019-05-21 04:11 | NUR ---
ZOFRAN GIVEN AT 0350 FOR DRY HEAVING AND NAUSEA EFFECTIVE PER PT. ALSO COMPLETE BATH AND BED LINEN CHANGE DONE. VS TAKEN AND RECORDED.
[2019-05-21 05:39] LABS: ALBUMIN 2.4 gm/dl (3.1-4.5); CREATININE 2.75 mg/dL (0.55-1.02); POTASSIUM 3.3 mmol/L (3.5-5.1); TOTAL PROTEIN 5.1 gm/dL (6.4-8.2)
[2019-05-21 06:11] LABS: EOS % 0.5 % (1.0-4.0); HEMATOCRIT 32.8 % (37.0-47.0); HEMOGLOBIN 8.4 g/dl (12.0-16.0); LYMPH # 0.3 10*3/uL (1.3-4.4); LYMPH % 5.4 % (27.0-41.0); MEAN CELL VOLUME 97.3 fl (81.0-99.0); MEAN CORPUSCULAR HGB 24.9 pg (27.0-31.0); MEAN CORPUSCULAR HGB CONC 25.6 g/dl (33.0-37.0); MEAN PLATELET VOLUME 11.1 fl (9.6-12.3); MONO # 0.3 10*3/uL (0.1-1.0); MONO % 4.8 % (3.0-9.0); NEUT # 5.4 10*3/uL (2.3-7.9); NEUT % 88.8 % (47.0-73.0); NUCLEATED RED BLOOD CELL 0.1 10*3/uL (0.0-0.0); PLATELET COUNT AUTOMATED 92 10*3/uL (130-400); RED BLOOD COUNT 3.37 10*6/uL (4.10-5.10); RED CELL DISTRI WIDTH 26.5 % (0-14.5); WHITE BLOOD COUNT 6.1 10*3/uL (4.8-10.8)
[2019-05-21 08:00] VITALS: BP 99/43
--- NOTE | 2019-05-21 10:30 | NUR ---
ZOFRAN EFFECTIVE, PT ABLE TO EAT A FEW BITES OF STRAWBERRIES
--- NOTE | 2019-05-21 11:00 | NUR ---
CARDIOLOGY HERE, UPDATED ON LOWER BP AFTER ADMINISTRATION OF BETA MOLLY, PT WITH 5-10% EF
[2019-05-21 12:00] VITALS: BP 83/44
[2019-05-21 16:00] VITALS: BP 82/40
[2019-05-21 19:06] LABS: HEPATITIS B SURFACE AG Negative (Negative); HEPATITIS C AB <0.1 (0.0-0.9)
--- NOTE | 2019-05-21 19:11 | NUR ---
CHART CHECK COMPLETE. PT DOZING.
--- NOTE | 2019-05-21 19:51 | NUR ---
FAMILY MEMBERS VISIT.
[2019-05-21 20:00] VITALS: BP 87/45
[2019-05-22] VITALS: BP 91/39
[2019-05-22 04:00] VITALS: BP 86/41
[2019-05-22 04:26] LABS: EOS # 0.1 10*3/uL (0.0-0.4); EOS % 0.9 % (1.0-4.0); HEMATOCRIT 31.3 % (37.0-47.0); HEMOGLOBIN 8.2 g/dl (12.0-16.0); LYMPH # 0.7 10*3/uL (1.3-4.4); LYMPH % 11.2 % (27.0-41.0); MEAN CELL VOLUME 98.1 fl (81.0-99.0); MEAN CORPUSCULAR HGB 25.7 pg (27.0-31.0); MEAN CORPUSCULAR HGB CONC 26.2 g/dl (33.0-37.0); MEAN PLATELET VOLUME 10.8 fl (9.6-12.3); MONO # 0.3 10*3/uL (0.1-1.0); NEUT # 4.8 10*3/uL (2.3-7.9); NEUT % 82.2 % (47.0-73.0); NUCLEATED RED BLOOD CELL 0.1 10*3/uL (0.0-0.0); PLATELET COUNT AUTOMATED 92 10*3/uL (130-400); RED BLOOD COUNT 3.19 10*6/uL (4.10-5.10); RED CELL DISTRI WIDTH 26.4 % (0-14.5); WHITE BLOOD COUNT 5.8 10*3/uL (4.8-10.8)
[2019-05-22 04:41] LABS: ALBUMIN 2.4 gm/dl (3.1-4.5); CREATININE 2.7 mg/dL (0.55-1.02); POTASSIUM 3.3 mmol/L (3.5-5.1); TOTAL PROTEIN 5.3 gm/dL (6.4-8.2)
--- NOTE | 2019-05-22 05:55 | NUR ---
PT ASSISTED TO POSITION OF COMFORT DONE THROUGHOUT THE NIGHT AT LEAST Q2H. AT TIMES, WHEN PLACED ON HER BACK, SHE WILL TURN TO HER LT SIDE ON HER OWN. SHE CONTINUES TO JUST CALL OUT RATHER THAN USE HER CALL LIGHT. AGAIN, DECLINES BATH AND TURNS FACE AWAY FROM ME, STATING "I DON'T KNOW WHAT I WANT." ASSISTED PT THROUGHOUT THE NIGHT WITH DRINKING HER SWEET TEA. THIS AM, SHE STATES "I JUST FEEL SHORT OF BREATH". REPOSITIONED. PULSE OX IS 98%-100% AND RR 18/MIN WITH HR 80. EMOTIONAL SUPPORT GIVEN. PT PLACED ON NC2 FOR COMFORT AND ZOFRAN GIVEN PT DRY HEAVED X 3 AND SHOOK HEAD "YES" WHEN ASKED IF NAUSEATED.
--- NOTE | 2019-05-22 06:38 | NUR ---
PT UTILIZES CALL LIGHT. STATES "FEELING BETTER BUT I NEED THE BED JANE". PLACED ON BED JANE PER REQUEST.
--- NOTE | 2019-05-22 06:47 | NUR ---
PT CHECKED AND STILL NOT DONE ON BED JANE.
--- NOTE | 2019-05-22 06:50 | NUR ---
REMOVED FROM BEDPAN AND PT REPOSITIONED.
[2019-05-22 08:00] VITALS: BP 96/42
--- NOTE | 2019-05-22 09:00 | NUR ---
DR WADSWORTH HERE AND WANTS D5W AT 100, TO CORRECT SODIUM LEVELS "DO NOT LET THE RESIDENT CHANGE THIS, IT WILL NOT OVERLOAD HER"
--- NOTE | 2019-05-22 09:32 | NUR ---
Spoke to son, Pieter, at [phone]. He states his mother was at our facility several weeks ago and was transferred to [facility]. From [facility] she discharged to [facility]. Her insurance ran out of days and she was discharged to home from [facility] with [facility]. She was home for 2 days but her is not able to care for her at home. Son wants everything done for his mother. He states she doesn't have hospice at home and they are not interested in hospice at this time. Discussed palliative care and he is not interested in palliative care either. He states she had a kidney removed and her heart was fine at that time and would like to speak to the physician about what is going on. Hospitalist nurse director notified.
--- NOTE | 2019-05-22 09:42 | NUR ---
CHRISTINE VILLANUEVA [id number] Please refer to the physician's history and physical for past medical history, comorbid conditions, and allergies. Diagnosis: CHF EXACERBATION GENERALIZED WEAKNESS Ronald Score: 12,HIGH RISK WOUND DESCRIPTIONS: Wound Number: 1 Location of the wound: left forearm, mid Type of wound: skin tear Thickness: Full Size: 1.9cm x 2cm x 0.1cm Tunneling: none Undermining: none Sinus Tract: none Presence of Exudate: Serous Amount: Light Color: Red Odor: None Periwound Skin Appearance: Cool Wound edges: approximated Pain (associated with wound): denied at time of assessment How does patient state this happened? patient unsure how this happened. Wound Number: 2 Location of the wound: right forearm Type of wound: skin tear Thickness: Partial Size: 2.5cm x 1.5cm x 0.1cm Tunneling: none Undermining: nione Sinus Tract: none Presence of Exudate: Serous Amount: Light Color: Red Odor: None Periwound Skin Appearance: Erythema Wound edges: approximated Pain (associated with wound): denied at time of assessment How does patient state this happened? patient unsure how this happened Wound Number: 3 Location of the wound: right proximal forearm Type of wound: skin tear Thickness: Partial Size: 4.5cm x 4cm x 0.1cm Tunneling: none Undermining: none Sinus Tract: none Presence of Exudate: Serous Amount: Light Color: Red Odor: None Periwound Skin Appearance: Erythema Wound edges: approximated Pain (associated with wound): denied at time of assessment How does patient state this happened? patient unsure how that happened. Wound Number: 4 Location of the wound: left forearm proximal Type of wound: skin tear Thickness: Partial Size: 0.4cm x 1.6cm x 0.1cm Tunneling: none Undermining: none Sinus Tract: none Presence of Exudate: Serous Amount: Light Color: Red Odor: None Periwound Skin Appearance: Normal Wound edges: approximated Pain (associated with wound): denied at time of assessment How does patient state this happened? patient unsure how this happened. Wound Number: 5 Location of the wound: left heel Type of wound: fissure Thickness: Partial Size: 0.4cm x 0.2cm x 0.1cm Tunneling: none Undermining: none Sinus Tract: none Presence of Exudate: Amount: None Color: Brown Odor: None Periwound Skin Appearance: Normal Wound edges: approximated Pain (associated with wound): denied at time of assessment How does patient state this happened? patient unsure how this happened. Surface the patient is resting on: Isoflex SKIN PREVENTION RECOMMENDATION: 1. Pressure redistribution support surface as appropriate 2. Elevate heels 3. Remove boots/TEDS every shift and reapply 4. Head of bed 30 degrees as tolerated 5. Assess nutrition and hydration 6. Manage moisture 7. Avoid the use of containment devices while in bed 8. Use absorptive products on surfaces limit layers of linens on bed 9. Turn and reposition every 1-2 hours in bed and every 1 hour in chair as tolerated 10. Weight shifts every 15 minutes while up in chair 11. Offloading with pillows or device to keep heels elevated off bed 12. Monitor skin at least every shift 13. Inspect under medical devices twice a day WOUND TREATMENT RECOMMENDATIONS: Continue current skin terar guidelines.
--- NOTE | 2019-05-22 10:25 | NUR ---
SHASHANK PER PTS REQUEST FOR OVERALL BODY PAIN
--- NOTE | 2019-05-22 10:30 | NUR ---
Home Mortgage Disclosure Act Specialist in to talk to patient. Patient states lives at home with her . There are 2 steps in the home. Physician: Elizabeth AVELAR Pharmacy: [facility] Home health services: none Patient's level of ADLs: MINIMAL ASSIST Patient has working utilities: yes DME: walker, cane, O2 @ 2L nc prn, O2 supplier unknown Follow-up physician's appointment after d/c: will be made by the hospitalist nurse director upon discharge Does patient want to access PORTAL?: no Discharge plan discussed with patient. She lives at home with her . She is normally independent in her ADLs and uses a walker or a cane for ambulation. Discussed short term SNF and home health care services and she is unsure at this time of her discharge needs. Discharge plan undecided at this time. MAIDA LENNON
--- NOTE | 2019-05-22 11:09 | NUR ---
APPEARS MORE COMFORTABLE AFTER PO PAIN MED
[2019-05-22 12:00] VITALS: BP 92/44
--- NOTE | 2019-05-22 14:48 | NUR ---
zofran for nausea, pt refuses to eat anything for lunch at all 2v cxr completed
[2019-05-22 16:00] VITALS: BP 95/41
--- NOTE | 2019-05-22 16:43 | NUR ---
PT REFUSING ANY DINNER AND REFUSING TO DRINK ANY FLUIDS RIGHT NOW
--- NOTE | 2019-05-22 17:10 | NUR ---
Nursing screen received and chart review completed. Patient admitted with weakness, sob, nausea, vomiting and heart failure with reduced ejection fracture in ICCU. WHen patient is medicallly appropriate, OT evaluation may be beneficial for d/c planning. Thank you. Daisy Castellanos OTR/l
--- NOTE | 2019-05-22 17:42 | NUR ---
DR WILKINS UPDATED ON CXR RESULTS
--- NOTE | 2019-05-22 18:29 | NUR ---
PHYSICAL THERAPY Nursing screen received and chart reviewed. Please order PT evaluation when medically appropriate. Thank you. Jen Jade,PT,DPT
[2019-05-22 20:00] VITALS: BP 96/46
--- NOTE | 2019-05-22 21:30 | NUR ---
PATIENT GIVEN ZOFRAN FOR C/O NAUSEA. NO EMESIS WAS OBSERVED. CALL LIGHT WITHIN REACH. WILL CONTINUE TO MONITOR AND REASSESS.
[2019-05-23] VITALS (12 sets, daily range): BP systolic 79–144; BP diastolic 40–80
--- NOTE | 2019-05-23 01:00 | NUR ---
CHART CHECK COMPLETED.
[2019-05-23 04:41] LABS: HEMATOCRIT 30.5 % (37.0-47.0); MEAN CELL VOLUME 97.1 fl (81.0-99.0); MEAN CORPUSCULAR HGB 25.5 pg (27.0-31.0); MEAN CORPUSCULAR HGB CONC 26.2 g/dl (33.0-37.0); MEAN PLATELET VOLUME 11.6 fl (9.6-12.3); NUCLEATED RED BLOOD CELL 0.1 10*3/uL (0.0-0.0); PLATELET COUNT AUTOMATED 99 10*3/uL (130-400); RED BLOOD COUNT 3.14 10*6/uL (4.10-5.10); RED CELL DISTRI WIDTH 25.8 % (0-14.5)
[2019-05-23 04:57] LABS: ALBUMIN 2.4 gm/dl (3.1-4.5); CREATININE 2.67 mg/dL (0.55-1.02); POTASSIUM 3.4 mmol/L (3.5-5.1); TOTAL PROTEIN 5.4 gm/dL (6.4-8.2)
[2019-05-23 05:21] LABS: TOTAL CELLS COUNTED 100 #CELLS
[2019-05-23 05:22] LABS: MICROCYTOSIS SLIGHT; PLATELET SUFFICIENCY LOW (NORMAL)
--- NOTE | 2019-05-23 07:20 | NUR ---
Shift chart check completed.
--- NOTE | 2019-05-23 08:18 | NUR ---
MEDICATED WITH ZOFRAN FOR DRY HEAVES
--- NOTE | 2019-05-23 09:52 | NUR ---
DR MCKEON HERE AND SPOKE WITH THE PATIENT. FRIEND IS HERE AND TALKING TO THE PATIENT & SHE CALLED HER FOR THE PATIENT TO TALK TO HIM. THE PATIENT TOLD HER THAT IT IS NOT GOOD & HER FUNCTION IS DOWN
--- NOTE | 2019-05-23 09:59 | NUR ---
PATIENT TOOK PILLS WITH TINY BIT OF APPLE SAUCE THEN SPIT THEM OUT & BEGAN DRY GAGGING BUT QUIT SOON SHE SPIT OUT THE PILLS. REFUSED ANY LIQUIDS
--- NOTE | 2019-05-23 11:03 | NUR ---
DR MCGEE & DR WARE SPOKE WITH PATIENT & FAMILY AT LENGTH ABOUT CONDITION BEING TERMINAL & THAT THEY NEEDED TO MAKE A DECISION ABOUT GOING FULL AHEAD OR HOSPICE.
--- NOTE | 2019-05-23 11:58 | NUR ---
DISCUSSED WITH VISITORS AGAIN THAT ISOLATION GOWN & GLOVES ARE REQUIRED FOR THEIR PROTECTION MUCH FOR HER. EXPLAINED THAT WE ARE TRYING TO KEEP HER FROM CATCHING ANYTHING THAT COULD POTENTIALLY MAKE HER CONDITION WORSE. FINALLY AGREEING TO WEAR PPI
--- NOTE | 2019-05-23 12:05 | NUR ---
Per Dr Negrno OK to give Lasix if that's what Renal wants. Awaiting return call to clarify IVF
--- NOTE | 2019-05-23 12:37 | NUR ---
PER THE SON THE PATIENT DID SHAKE HER HEAD YES & NO WHEN THEY WERE IN TALKING. AT THAT TIME SHE SHOOK HER HEAD NO TO GOING TO HAVE FURTHER INTERVENTIONS DONE. THEY HAVE NOT MADE A FINAL DECISION.
--- NOTE | 2019-05-23 14:20 | NUR ---
SPOKE WITH THE FAMILY AGAIN AND PATIENT AGREED TO GO FOR FURTHER TESTING FOR LV HEART FAILURE. DR NESBITT CALLED DR WARE & HE IS MAKING A FEW CALLS PRIOR TO HER CALLING FOR TRANSFER. DR CARPENTER & DR MCGEE MADE AWRE OF FAMILY REQUEST FOR TRANSERFER
--- NOTE | 2019-05-23 15:08 | NUR ---
RECEIVED CALL FROM E'S THEY ARE HAVING TO WAIT ON A BED (DISCHARGES) MAY BE A WHILE - DR NESBITT NOTIFIED DR WARE
[2019-05-23] MEDS ORDERED: METOPROLOL SUCC25 M2 PO (17:03)
--- NOTE | 2019-05-23 17:16 | NUR ---
PER DR WARE TO DR NESBITT BP IN THE 80'S OK LONG PATIENT IS NOT SYMPTOMATIC. WILL CONSIDER BOLUS OF 250cc IF BECOMES SYMPTOMATIC
--- NOTE | 2019-05-23 17:53 | NUR ---
DR NESBITT MADE AWARE OF BLOOD PRESSURE - SHE IS CALLING DR WARE FOR ORDERS
--- NOTE | 2019-05-23 18:12 | NUR ---
IVF STARTED PER ORDERS
--- NOTE | 2019-05-23 19:42 | NUR ---
DR GAN HERE AND AWARE OF BLOOD PRESSURE - REPORT CALLED TO [facility]...
--- NOTE | 2019-05-23 21:07 | NUR ---
PT. TRANSFERRED TO [facility] ORDERED VIA AMBULANCE. REPORT GIVEN TO AMBULANCE CREW. ALL BELONGINGS WITH PATIENT. VS STABLE (MAP [phone]) ORDERED. CECI BRODERICK RN
--- NOTE | 2019-05-24 07:38 | NUR ---
Received voicemail from Zahira from [facility] regarding discharge planning. Returned call and informed patient transferred to [facility] last night.
== END 2019-05-23 21:08 | disposition short-term general hospital (02) | DRG 291 ==
LOC: ED 11:32 → EDHOLD 13:49 → ICCU 13:49
PROVIDERS: Family Medicine; Hospitalist; Student in an Organized Health Care Education/Training Program; ADMIT Emergency Medicine
DX: I13.0 Hypertensive heart and chronic kidney disease with heart failure and stage 1 through stage 4 chronic kidney disease, or unspecified chronic kidney disease (principal); I50.43 Acute on chronic combined systolic (congestive) and diastolic (congestive) heart failure; N17.0 Acute kidney failure with tubular necrosis; E43 Unspecified severe protein-calorie malnutrition; N18.4 Chronic kidney disease, stage 4 (severe); E87.2 Acidosis; E87.0 Hyperosmolality and hypernatremia; I74.9 Embolism and thrombosis of unspecified artery; K21.9 Gastro-esophageal reflux disease without esophagitis; E83.41 Hypermagnesemia; E87.8 Other disorders of electrolyte and fluid balance, not elsewhere classified; E80.6 Other disorders of bilirubin metabolism; D64.9 Anemia, unspecified; R82.2 Biliuria; R82.71 Bacteriuria; R26.2 Difficulty in walking, not elsewhere classified; I42.8 Other cardiomyopathies; I44.7 Left bundle-branch block, unspecified; E87.6 Hypokalemia; T50.2X5A Adverse effect of carbonic-anhydrase inhibitors, benzothiadiazides and other diuretics, initial encounter; D69.6 Thrombocytopenia, unspecified; I08.2 Rheumatic disorders of both aortic and tricuspid valves; Z95.2 Presence of prosthetic heart valve; Z91.81 History of falling; Z85.528 Personal history of other malignant neoplasm of kidney; Z90.5 Acquired absence of kidney; Z98.49 Cataract extraction status, unspecified eye; Z90.49 Acquired absence of other specified parts of digestive tract; Z90.710 Acquired absence of both cervix and uterus; Z95.810 Presence of automatic (implantable) cardiac defibrillator; Z84.89 Family history of other specified conditions; Z88.0 Allergy status to penicillin; Z88.8 Allergy status to other drugs, medicaments and biological substances; Z79.899 Other long term (current) drug therapy; Z79.82 Long term (current) use of aspirin; Y92.89 Other specified places as the place of occurrence of the external cause